=== PATIENT | male | born 1960 | race Two or more races ===

== ENCOUNTER 2023-10-25 23:21 | Emergency (ER) | payer OTHER ==
[2023-10-25 23:27] VITALS: BP 149/82; PULSE 79; RESP 20; TEMP 99.3; BMI 32.8
[2023-10-26 01:00] LABS: BASO % 0.1 % (0-2.0); EOS % 0.4 % (0-4.5); HEMATOCRIT 36.1 % (35.4-49); HEMOGLOBIN 12.6 GM/dL (11.7-16.9); LYMPH % 10.4 % (8-40); MCH 32.4 pg (25.7-33.7); MCHC 34.8 g/dl (32.0-35.9); MEAN PLT VOLUME 7.9 fl (7.5-11.1); MONO % 7.8 % (3.8-10.2); NEUT % 81.3 % (42.8-82.8); PLATELET COUNT 200 10^3/uL (134-434); RBC 3.88 M/mm3 (4.00-5.60); RDW 14.1 % (11.9-15.9); WHITE BLOOD COUNT 14.2 K/mm3 (4.0-10.0)
[2023-10-26 01:07] LABS: INR 1.29 (0.83-1.09); PROTHROMBIN TIME (PATIENT) 14.5 SEC (9.7-13.0)
[2023-10-26 01:10] LABS: ACTIVATED PTT 35.1 SECONDS (25.2-36.5)
[2023-10-26 01:18] LABS: POTASSIUM 3.9 mmol/L (3.5-5.1)
[2023-10-26 01:20] LABS: CALCIUM 8.7 mg/dL (8.5-10.1)
[2023-10-26 01:21] LABS: ALBUMIN 3.4 g/dl (3.4-5.0); BLOOD UREA NITROGEN 17.4 mg/dL (7-18)
[2023-10-26 01:26] LABS: BILIRUBIN,TOTAL 0.7 mg/dL (0.2-1); TOT PROT 7.6 g/dl (6.4-8.2)
[2023-10-26 02:10] LABS: EPI CELLS 5 /uL (0-25.1); HYALINE CASTS 4 /uL (0-3.1); PH,URINE 5.5 (5.0-8.0); URINE APPEARANCE CLOUDY; URINE BACTERIA >9,000 /uL (0-1359); URINE BILIRUBIN NEGATIVE (NEGATIVE); URINE COLOR YELLOW; URINE GLUCOSE (UA) NEGATIVE (NEGATIVE); URINE KETONE NEGATIVE (NEGATIVE); URINE LEUK ESTERASE 1+ (NEGATIVE); URINE NITRITE POSITIVE (NEGATIVE); URINE PROTEIN 2+ (NEGATIVE); URINE RBC 10 /uL (0-23.9); URINE WBC 475 /uL (0-25.8)
== END 2023-10-26 04:57 | disposition home or self-care (01) ==
LOC: JER 23:21
DX: N39.0 Urinary tract infection, site not specified (principal); N50.811 Right testicular pain; R30.0 Dysuria
CPT/HCPCS: 36415; 74177-TC; 76870-TC; 80053; 81003; 83605; 85025; 85610; 85730; 86850; 86900; 86901; 87086; 87186; 93005; 93010; 99285-25